=== PATIENT | female | born 1950 | race Caucasian/White ===

== ENCOUNTER 2018-05-04 17:18 | Observation (INO) ==
--- NOTE | 2018-05-04 17:37 | Emergency Department Note ---
Disposition Clinical Impression: Acute kidney insufficiency, Orthostatic hypotension dysautonomic syndrome Disposition: Admitted As Inpatient Time of Disposition: 18:30 (DR Pulido) Dizziness HPI - General Chief Complaint: ED General Medical Stated Complaint: low BP Time Seen by Provider: 05/04/18 17:23 Source: patient, EMS Mode of arrival: ambulatory Limitations: no limitations Nursing Notes Reviewed: Yes Vital Signs Reviewed: Yes - History of Present Illness Pt Subjective Complaint: dizziness Onset (ago): week(s) (4.5) Timing: gradual onset Description: other (Dizziness with postural changes) History of similar episodes: No History of trauma: No Severity: moderate Improves with: rest Worsens with: position Associated symptoms: Denies: ataxia, chest pain, confusion, diaphoresis, fever, chills, malaise, rash, shortness of breath, syncope, weakness, vision changes, nausea, vomiting, palpitations - Related Data Home Medications Medication Instructions Recorded Confirmed Aspirin 81 mg PO DAILY 10/06/17 05/04/18 BuPROPion XL (24 HR) [Wellbutrin 300 mg PO DAILY 10/06/17 05/04/18 XL] Calcium Carbonate/Vitamin D3 1 tab PO DAILY 10/06/17 05/04/18 [Calcium 500-Vit D3 200 Tablet] Donepezil [Aricept] 5 mg PO HS 10/06/17 05/04/18 Furosemide [Lasix] 40 mg PO DAILY 10/06/17 05/04/18 Levothyroxine [Synthroid] 175 mcg PO 0630 10/06/17 05/04/18 Lisinopril [Zestril] 40 mg PO DAILY 10/06/17 05/04/18 Metoprolol [Lopressor] 25 mg PO BID 10/06/17 05/04/18 Atorvastatin [Lipitor] 20 mg PO HS 03/05/18 05/04/18 Allergies Allergy/AdvReac Type Severity Reaction Status Date / Time No Known Allergies Allergy Verified 05/04/18 17:21 All systems ED: reviewed and negative except as stated. Review of Systems: As Per HPI Past Medical History - Past Medical History Medical history: Reports: CHF, dementia, hyperlipidemia, hypertension, thyroid disease, other Surgical history: Reports: cholecystectomy, knee replacement (Left), other ( Bladder suspension, hemorrhoidectomy) Psychiatric history: Reports: anxiety, depression ALTERNATIVE MEDICINE PRACTITIONER history: Reports: bilateral tubal ligation - Social History Smoking Status: Never smoker Smokeless Tobacco Status: No Alcohol use: Reports: none Drug use: Reports: none Physical Exam - General Limitations: no limitations General appearance: alert - Head Head exam: atraumatic, normocephalic - Expanded Head Exam Head exam physicial: Absent: tenderness of temporal artery - Eye Eye exam: Present: normal appearance, PERRL, EOMI. Absent: scleral icterus, conjunctival injection, nystagmus - ENT ENT exam: normal exam, normal oropharynx, mucous membranes moist - Neck Neck exam: Present: normal inspection, full ROM, trachea midline. Absent: tenderness, thyromegaly - Expanded Neck Exam Neck exam focused ED: Absent: JVD, carotid bruit - Chest Chest inspection: Present: normal inspection, symmetric chest wall rise - Respiratory Respiratory exam: Present: normal lung sounds bilaterally - Cardiovascular Cardiovascular exam: Present: regular rate, normal rhythm, normal heart sounds - Extremities Exam Extremities exam: Present: normal inspection, full ROM, normal capillary refill. Absent: tenderness, pedal edema - Back Exam Back exam: Present: normal inspection, full ROM. Absent: tenderness - Neurological Exam Neurological exam: Present: alert, oriented X3, CN II-XII intact, reflexes normal. Absent: motor sensory deficit - Psychiatric Psychiatric exam: Present: normal affect, normal mood - Skin Skin exam: Present: warm, dry, intact, normal color Course Vital Signs Temperature 98.8 F 05/04/18 17:22 Pulse Rate 67 05/04/18 17:22 Respiratory Rate 14 05/04/18 17:22 Blood Pressure 133/54 05/04/18 17:22 O2 Sat by Pulse Oximetry 97 05/04/18 17:22 Temperature 97.8 F 05/04/18 19:44 Pulse Rate 65 05/04/18 21:01 Respiratory Rate 17 05/04/18 19:44 Blood Pressure 117/71 05/04/18 21:01 O2 Sat by Pulse Oximetry 95 05/04/18 19:44 Oxygen Delivery Oxygen Delivery Room Air Dizziness - Lab Data Result diagrams: 05/04/18 18:00 05/04/18 18:00 Lab Results 05/04/18 05/04/18 Range/Units 18:00 18:00 WBC 8.1 (4.3-11.1) K/mcL RBC 3.53 L (3.82-4.97) M/mcL Hgb 12.1 (11.5-15.4) g/dL Hct 33.8 L (35.3-44.9) % MCV 95.8 (83.0-100.0) fL MCH 34.3 H (28.0-33.3) pg MCHC 35.8 H (31.6-35.5) g/dL RDW 13.0 (11.5-14.5) % Plt Count 203 (140-400) K/mcL MPV 9.8 (9.4-12.4) fL Immature Gran % 0.6 (0-4) % Seg Neutrophils % 75.4 % Lymphocytes % 13.6 % Monocytes % 7.3 % Eosinophils % 2.6 % Basophils % 0.5 % Neutrophils # 6.1 (1.6-8.9) K/mcL Lymphocytes # 1.1 (0.6-4.6) K/mcL Monocytes # 0.6 (0.0-1.3) K/mcL Eosinophils # 0.2 (0.0-0.6) K/mcL Basophils # 0.0 (0.0-0.2) K/mcL Sodium 133 L (136-145) mEq/L Potassium 3.6 (3.5-5.1) mEq/L Chloride 96 L (98-107) mEq/L Carbon Dioxide 25 (23-29) mEq/L BUN 24 H (8-23) mg/dL Creatinine 1.62 H (0.60-1.20) mg/dL Est GFR ( Amer) 38 L (> 60) Est GFR (Non-Af Amer) 32 L (> 60) BUN/Creatinine Ratio 15 (6-26) Glucose 100 (70-105) mg/dL Calculated Osmolality 280 (280-300) Calcium 9.9 (8.6-10.3) mg/dL
[2018-05-04 18:12] LABS: Basophils % 0.5 %; Eosinophils # 0.2 K/mcL (0.0-0.6); Eosinophils % 2.6 %; Hematocrit 33.8 % (35.3-44.9); Hemoglobin 12.1 g/dL (11.5-15.4); Immature Granulocytes % 0.6 % (0-4); Lymphocytes # 1.1 K/mcL (0.6-4.6); Lymphocytes % 13.6 %; Mean Corpuscular HGB Conc 35.8 g/dL (31.6-35.5); Mean Corpuscular Hemoglobin 34.3 pg (28.0-33.3); Mean Corpuscular Volume 95.8 fL (83.0-100.0); Mean Platelet Volume 9.8 fL (9.4-12.4); Monocytes # 0.6 K/mcL (0.0-1.3); Monocytes % 7.3 %; Neutrophils # 6.1 K/mcL (1.6-8.9); Platelet Count 203 K/mcL (140-400); Red Blood Count 3.53 M/mcL (3.82-4.97); Segmented Neutrophils % 75.4 %
[2018-05-04] MEDS ORDERED: 0.9 % Sodium Chloride 1,000 ML IVC ONE (18:24)
[2018-05-04 18:25] LABS: Calcium 9.9 mg/dL (8.6-10.3); Potassium 3.6 mEq/L (3.5-5.1)
[2018-05-04] MEDS ORDERED: Ondansetron 4 MG/2 ML VIAL IVP PRN (19:36)
[2018-05-04] MEDS ORDERED: Acetaminophen 325 MG TABLET PO PRN (19:36)
[2018-05-04] MEDS ORDERED: Naloxone 0.4 MG/ML INJ IVP PRN (19:36)
[2018-05-04] MEDS ORDERED: OXYCODONE Oral CONC 10 MG/0.5 ML ORAL.SYG SL PRN (19:36)
[2018-05-04] MEDS ORDERED: *HR* HYDROcodone/Acet 5/325 mg TABLET PO PRN (19:36)
[2018-05-05] MEDS ORDERED: *HR* OxyCODONE Oral Soln 5 MG/5 ML UD.LIQ PO PRN (08:00)
[2018-05-05] MEDS: Aspirin 81 MG TAB.CHEW PO SCH (08:48)
[2018-05-05] MEDS: BuPROPion XL (24 HR) 150 MG TABLET PO SCH (08:48)
[2018-05-05] MEDS ORDERED: Lisinopril 20 MG TABLET PO SCH (09:00)
--- NOTE | 2018-05-05 11:15 | Internal Med History&Physical ---
Date of Encounter: 05/05/18 Time of Encounter: 10:45 Assessment and Plan (1) Acute on chronic renal failure Current visit: Yes Status: Acute Will hold ACEI and Lasix and give IV fluids. Monitor labs Qualifiers: Acute renal failure type: unspecified Chronic kidney disease stage: stage 3 (moderate) Qualified Code(s): N17.9 - Acute kidney failure, unspecified; N18.3 - Chronic kidney disease, stage 3 (moderate) (2) CKD (chronic kidney disease) stage 3, GFR 30-59 ml/min Current visit: Yes Status: Chronic As above (3) Hyperuricemia Current visit: Yes Status: Acute Uric acid level was 10.5 on 04/19/2018. Will give low-dose allopurinol. (4) Low vitamin D level Current visit: Yes Status: Acute Vitamin D level was 10 on 04/19/2018. Home med list includes calcium and vitamin D supplement. Recheck in a.m. (5) Hypertension Current visit: Yes Status: Chronic Hold lisinopril, metoprolol, and Lasix because of borderline hypotension. Qualifiers: Hypertension type: essential hypertension Qualified Code(s): I10 - Essential (primary) hypertension (6) Hypothyroidism Current visit: Yes Status: Chronic TSH has not been checked since 2013. Check in a.m. Continue present dose Synthroid for now. Qualifiers: Hypothyroidism type: unspecified Qualified Code(s): E03.9 - Hypothyroidism , unspecified (7) Dyspnea on exertion Current visit: Yes Status: Acute Check Bn peptide and room air oximetry on ambulation. Internal Medicine - H&P: HPI Chief complaint: Lightheaded and weakness Admitted From: Emergency Dept Plans for Post Hospital Care: Home History of present illness: Ms. Mejia is a 67 year old female who came to emergency room complaining of sensation of lightheadedness with weakness onset approximately 4 weeks earlier. She reports instability without fall while ambulating with her walker. She reports slight increased dyspnea on exertion. She was evaluated in emergency room and found to have acute on chronic renal insufficiency. She was admitted to [facility] floor for ongoing care needs. She states she feels improved at the present time. Cardiovascular history is significant for hypertension. She claims a diagnosis of heart failure although BN peptide was 18 on 03/05/2018. She had a Regadenoson stress test 01/16/2016 which showed no perfusion or EKG changes of ischemia. LVEF was 73%. She denies chest pain on exertion. She denies past [place] DVT or pulmonary embolus. Past Med Surg Social Fam HX - Past Medical History Medical history: CHF, dementia, hyperlipidemia, hypertension, thyroid disease, other Additional medical history: hemorrhoids. early dementia vs alzheimers Psychiatric history: anxiety, depression - Past Surgical History Surgical History: cholecystectomy, knee replacement (Left), other (Bladder suspension, hemorrhoidectomy) Additional surgical history: left knee replacement, bladder tuck, tubal ligation , colonoscopy, hemorrhoidectomy - Social History Smoking Status: Never smoker Smokeless Tobacco Status: No Alcohol use: none Drug use: none - Family History Mother Living Status: Hx Family Cardiac Disorders: Yes Hx Family Cancer: Yes (Cervical) Father Living Status: Hx Family Cardiac Disorders: Yes Internal Medicine - H&P: Meds Aspirin 81 mg PO DAILY 10/06/17 [History] BuPROPion XL (24 HR) [Wellbutrin XL] 300 mg PO DAILY 10/06/17 [History] Calcium Carbonate/Vitamin D3 [Calcium 500-Vit D3 200 Tablet] 1 tab PO DAILY [History] Donepezil [Aricept] 5 mg PO HS 10/06/17 [History] Furosemide [Lasix] 40 mg PO DAILY 10/06/17 [History] Levothyroxine [Synthroid] 175 mcg PO 0630 10/06/17 [History] Lisinopril [Zestril] 40 mg PO DAILY 10/06/17 [History] Metoprolol [Lopressor] 25 mg PO BID 10/06/17 [History] Atorvastatin [Lipitor] 20 mg PO HS 03/05/18 [History] 3 Allergy/AdvReac Type Severity Reaction Status Date / Time No Known Allergies Allergy Verified 05/04/18 17:21 All Systems PM: A 10-system review of systems was performed and is negative for pertinent findings except as documented above in the HPI. Review of systems: Gen.: Her weight has increased from 100.244 kg 07/18/2014 to 103.221 kg at present Cardiovascular: As per history of present illness Respiratory: She is a lifelong nonsmoker and has no known chronic lung disease. She reports negative workup for EDWARDO in the past. GI: She denies disorders of her liver gallbladder or exocrine pancreas : She was hospitalized for UTI with possible pyelonephritis 2013. She denies frequent urinary infections or other disorders of her kidney or bladder. She has chronic kidney disease stage III and follows with a blasting contract man. Neurologic: She denies large distribution strokes or seizures. Endocrine: She has hypothyroidism and hyperlipidemia but denies diabetes Hematology/oncology: She denies blood disorders cancers or anemia Psychiatric: She has depression but denies anxiety or other mental health issues [place] skeletal: She has rheumatoid arthritis and had left total knee replacement but denies gout osteoporosis or other bone joint or muscle disorders. - Constitutional Vitals: Temp Pulse Resp BP Pulse Ox 98.1 F 50 14 113/64 97 05/05/18 07:02 05/05/18 07:02 05/05/18 07:02 05/05/18 07:02 05/05/18 10:14 Exam: Gen.: She is a well-developed overweight female resting comfortably in bed who appears in no acute distress at present time HEENT: Head is atraumatic and normocephalic. Eyes: EOMI. There is no scleral icterus. Mouth: Mucosa is moist. Neck: Supple and nontender. There is no thyromegaly or adenopathy noted. Heart: Regular with occasional ectopics. No murmurs or gallops are heard. Lungs: No wheezes or crackles are heard. Abdomen: Soft and nontender. No masses or guarding are noted. Extremities: She has trace edema in the dorsum of the feet bilaterally. Dorsalis pedis and posttibial pulses are trace palpable bilaterally. Neurologic: Mental status: She is talkative and a good historian. Cranial nerves: Smile is symmetric. Forehead wrinkles bilaterally. Tongue protrudes midline. EOMI. Motor: There is no pronator drift. Cerebellar: Finger to nose is intact bilaterally. Skin: Warm and dry Internal Med - H&P Results - Labs CBC & Chem 7: 05/04/18 18:00 05/04/18 18:00
[2018-05-05] MEDS: Patient Taking Own Medication 1 EACH PO SCH (11:23)
[2018-05-05 13:23] LABS: Magnesium 2.1 mg/dL (1.6-2.6); Potassium 3.3 mEq/L (3.5-5.1)
[2018-05-05] MEDS ORDERED: MOM Conc 10 ML UD.LIQ PO ONE (18:22)
[2018-05-06 06:41] LABS: Basophils % 0.3 %; Eosinophils # 0.2 K/mcL (0.0-0.6); Eosinophils % 3.1 %; Hematocrit 30.6 % (35.3-44.9); Hemoglobin 10.8 g/dL (11.5-15.4); Immature Granulocytes % 0.4 % (0-4); Lymphocytes # 0.9 K/mcL (0.6-4.6); Lymphocytes % 13.2 %; Mean Corpuscular HGB Conc 35.3 g/dL (31.6-35.5); Mean Corpuscular Hemoglobin 34.3 pg (28.0-33.3); Mean Corpuscular Volume 97.1 fL (83.0-100.0); Mean Platelet Volume 9.6 fL (9.4-12.4); Monocytes # 0.4 K/mcL (0.0-1.3); Monocytes % 5.9 %; Neutrophils # 5.2 K/mcL (1.6-8.9); Platelet Count 160 K/mcL (140-400); Red Blood Count 3.15 M/mcL (3.82-4.97); Red Cell Distribution Width 13.1 % (11.5-14.5); Segmented Neutrophils % 77.1 %
[2018-05-06 07:11] LABS: Calcium 8.8 mg/dL (8.6-10.3); Potassium 3.4 mEq/L (3.5-5.1)
[2018-05-06] MEDS: BuPROPion XL (24 HR) 150 MG TABLET PO SCH (08:33)
[2018-05-06] MEDS: Aspirin 81 MG TAB.CHEW PO SCH (08:33)
[2018-05-06] MEDS: Patient Taking Own Medication 1 EACH PO SCH (09:23)
--- NOTE | 2018-05-06 09:53 | Internal Med Progress Note ---
Date of Encounter: 05/06/18 Time of Encounter: 09:45 - Assessment and plan (1) Acute on chronic renal failure Current Visit: Yes Status: Acute Assessment and plan: May 06. BUN and creatinine improved to 18 and 1.30 respectively. Continue IV fluids and withholding Lasix and lisinopril. Recheck labs in a.m. Qualifiers: Acute renal failure type: unspecified Chronic kidney disease stage: stage 3 (moderate) Qualified Code(s): N17.9 - Acute kidney failure, unspecified; N18.3 - Chronic kidney disease, stage 3 (moderate) (2) CKD (chronic kidney disease) stage 3, GFR 30-59 ml/min Current Visit: Yes Status: Chronic Assessment and plan: May 06. As above (3) Hyperuricemia Current Visit: Yes Status: Acute Assessment and plan: May 06. Continue allopurinol (4) Low vitamin D level Current Visit: Yes Status: Acute Assessment and plan: May 06. Vitamin D level pending (5) Hypertension Current Visit: Yes Status: Chronic Assessment and plan: May 06. Hold lisinopril and Lasix. Restart metoprolol Qualifiers: Hypertension type: essential hypertension Qualified Code(s): I10 - Essential (primary) hypertension (6) Hypothyroidism Current Visit: Yes Status: Chronic Assessment and plan: May 06. TSH > 46. Increase Synthroid. Qualifiers: Hypothyroidism type: unspecified Qualified Code(s): E03.9 - Hypothyroidism , unspecified (7) Dyspnea on exertion Current Visit: Yes Status: Acute Assessment and plan: May 06. BN peptide normal at 39. Room air oximetry stable on 6 minute walk. Suspect deconditioning. (8) Anemia Current Visit: Yes Status: Acute Assessment and plan: May 06. Hemoglobin decreased to 10.8. Order anemia testing in a.m. Qualifiers: Anemia type: unspecified type Qualified Code(s): D64.9 - Anemia, unspecified - Subjective Interval history: May 06. She has no new complaints and feels better - Constitutional Vitals: Temp Pulse Resp BP Pulse Ox 98.1 F 66 16 146/74 97 05/06/18 06:57 05/06/18 06:57 05/06/18 06:57 05/06/18 06:57 05/06/18 08:10 Exam: She is resting comfortably on the side of bed. Her affect is bright and cheerful. I reviewed her medications. I discussed pertinent lab results with patient and family. Internal Medicine: Result - Labs CBC & Chem 7: 05/06/18 06:26 05/06/18 06:26 Labs: Short CBC 05/06/18 Range/Units 06:26 WBC 6.7 (4.3-11.1) K/mcL Hgb 10.8 L (11.5-15.4) g/dL Hct 30.6 L (35.3-44.9) % Plt Count 160 (140-400) K/mcL Neutrophils # 5.2 (1.6-8.9) K/mcL BMP 05/05/18 05/06/18 12:54 06:26 Sodium 134 L 134 L Potassium 3.3 L 3.4 L Chloride 97 L 101 Carbon Dioxide 26 25 BUN 22 18 Creatinine 1.57 H 1.30 H Glucose 112 H 104 Calcium 9.0 8.8 Consult Discharge Plan - Plan Referrals: Morgan Suarez, [employer] [Primary Care Provider] - 1 week
[2018-05-06] MEDS: 0.45 % Sodium Chloride w/KCl 20 MEQ/1,000 ML MLS IVC SCH (13:16)
[2018-05-06] MEDS: Metoprolol XL (24 HR) Succ 25 MG TAB.ER.24H PO SCH (13:16)
--- NOTE | 2018-05-06 18:45 | Electrocardiograph Report ---
[address] [id number] Test Date: 2018-05-04 Pat Name: Micki Mejia Department: [id number] Room: [facility] Gender: F [employer] Systems [employer]: [id number] 1950 Requested By: Romeo Randolph Order Number: [id number] Reading MD: El Tavares Measurements Intervals [place] Rate: 63 P: 57 NM: 170 QRS: 5 QRSD: 99 T: 94 QT: 344 QTc: 352 Interpretive Statements SINUS RHYTHM POSSIBLE INFERIOR MYOCARDIAL INFARCTION, PROBABLY OLD Electronically Signed On 05-06-2018 18:44:03 EDT by El Tavares
[2018-05-07 05:13] LABS: Basophils % 0.5 %; Eosinophils # 0.2 K/mcL (0.0-0.6); Eosinophils % 3.9 %; Hematocrit 30.5 % (35.3-44.9); Hemoglobin 10.6 g/dL (11.5-15.4); Immature Granulocytes % 0.7 % (0-4); Lymphocytes # 0.9 K/mcL (0.6-4.6); Lymphocytes % 15.7 %; Mean Corpuscular HGB Conc 34.8 g/dL (31.6-35.5); Mean Corpuscular Volume 97.8 fL (83.0-100.0); Mean Platelet Volume 9.7 fL (9.4-12.4); Monocytes # 0.3 K/mcL (0.0-1.3); Monocytes % 5.6 %; Neutrophils # 4.3 K/mcL (1.6-8.9); Platelet Count 160 K/mcL (140-400); Red Blood Count 3.12 M/mcL (3.82-4.97); Red Cell Distribution Width 13.2 % (11.5-14.5); Segmented Neutrophils % 73.6 %
[2018-05-07] MEDS: 0.45 % Sodium Chloride w/KCl 20 MEQ/1,000 ML MLS IVC SCH (05:25)
[2018-05-07 05:47] LABS: Calcium 8.6 mg/dL (8.6-10.3); Potassium 3.9 mEq/L (3.5-5.1)
[2018-05-07] MEDS: BuPROPion XL (24 HR) 150 MG TABLET PO SCH (08:15)
[2018-05-07] MEDS: Metoprolol XL (24 HR) Succ 25 MG TAB.ER.24H PO SCH (08:15)
[2018-05-07] MEDS: Aspirin 81 MG TAB.CHEW PO SCH (08:15)
[2018-05-07] MEDS: Patient Taking Own Medication 1 EACH PO SCH (08:15)
[2018-05-07 10:45] LABS: Folate 3.4 ng/mL (3.0-16.0)
[2018-05-07 15:07] VITALS: BP 131/64
--- NOTE | 2018-05-07 16:12 | Discharge Summary ---
Date of Encounter: 05/07/18 Time of Encounter: 15:55 - Discharge Diagnosis (1) Acute on chronic renal failure Priority: Primary Status: Acute Qualifiers: Acute renal failure type: unspecified Chronic kidney disease stage: stage 3 (moderate) Qualified Code(s): N17.9 - Acute kidney failure, unspecified; N18.3 - Chronic kidney disease, stage 3 (moderate) (2) CKD (chronic kidney disease) stage 3, GFR 30-59 ml/min Priority: Secondary Status: Chronic (3) Hyperuricemia Priority: Secondary Status: Chronic (4) Low vitamin D level Priority: Secondary Status: Chronic (5) Hypertension Priority: Secondary Status: Chronic Qualifiers: Hypertension type: essential hypertension Qualified Code(s): I10 - Essential (primary) hypertension (6) Hypothyroidism Priority: Secondary Status: Chronic Qualifiers: Hypothyroidism type: unspecified Qualified Code(s): E03.9 - Hypothyroidism , unspecified (7) Dyspnea on exertion Priority: Secondary Status: Acute (8) Anemia Priority: Secondary Status: Acute Qualifiers: Anemia type: unspecified type Qualified Code(s): D64.9 - Anemia, unspecified Hospital course: Ms. Mejia is a 67 year old female who came to emergency room complaining of sensation of lightheadedness with weakness onset approximately 4 weeks earlier. She reports instability without fall while ambulating with her walker. She reports slight increased dyspnea on exertion. She was evaluated in emergency room and found to have acute on chronic renal insufficiency. She was admitted to [facility] for ongoing care needs. Initial orders were written by the emergency room physician. I saw her on May 05 and performed a history and physical. Lasix and lisinopril were discontinued. IV fluids were administered and azotemia improved with BUN and creatinine decreasing to 11 and 1.17 by day of discharge with estimated GFR 46. Her blood pressure remained satisfactory. She will remain off Lasix and lisinopril at discharge. She will continue metoprolol. Vitamin D level returned low at 12. She will be given vitamin D 1000 IU daily. TSH returned significantly elevated at > 46.00. Synthroid dose was increased to 250 g daily. She will achieve this by adding a 75 g dose to her existing 175 g dose daily. Anemia testing showed iron 75, transferrin saturation 21%, transferrin 253, ferritin 103, B12 302, and folate 3.4. Hemoglobin was stable at 10.6 on day of discharge. On May 07 she felt significantly improved and stable for discharge home. She will follow with her PCP Morgan Suarez CNP within 1 week. - Time Spent with Patient Total time spent providing and/or coordinating discharge services: - Discharge Medications Prescriptions: Allopurinol [Zyloprim 100 MG] 100 mg PO DAILY #30 tablet Cholecalciferol (D-3) [Vitamin D] 1,000 unit PO DAILY #30 tablet Levothyroxine [Synthroid] 75 mcg PO 0630 #30 tablet Home Medications: Aspirin 81 mg PO DAILY 10/06/17 [History] BuPROPion XL (24 HR) [Wellbutrin Xl] 300 mg PO DAILY 10/06/17 [History] Calcium Carbonate/Vitamin D3 [Calcium 500-Vit D3 200 Tablet] 1 tab PO DAILY [History] Donepezil [Aricept] 5 mg PO HS 10/06/17 [History] Metoprolol [Lopressor] 25 mg PO BID 10/06/17 [History] Atorvastatin [Lipitor] 20 mg PO HS 03/05/18 [History] Allopurinol [Zyloprim 100 MG] 100 mg PO DAILY #30 tablet 05/07/18 [Rx] Cholecalciferol (D-3) [Vitamin D] 1,000 unit PO DAILY #30 tablet 05/07/18 [Rx] Levothyroxine [Synthroid] 75 mcg PO 0630 #30 tablet 05/07/18 [Rx] Levothyroxine [Synthroid] 175 mcg PO 0630 #0 05/07/18 [Rx] Allergies/Adverse Reactions: 3 Allergy/AdvReac Type Severity Reaction Status Date / Time No Known Allergies Allergy Verified 05/04/18 17:21 Date of admission: 05/04/18 18:54 Primary care physician: Morgan Suarez CNP - Constitutional Vitals: Temp Pulse Resp BP Pulse Ox 98.4 F 66 17 131/64 96 05/07/18 15:00 05/07/18 15:00 05/07/18 15:00 05/07/18 15:07 05/07/18 15:00 - Patient Status Disposition: Home, Self-Care Overall status at discharge: patient is progressing back to baseline - Discharge Instructions Follow Up With: Morgan Suarez CNP [Primary Care Provider] - 1 week - Diet and Activity Activity: resume usual activities as tolerated Diet: advance to your usual diet
[2018-05-07] MEDS ORDERED: MOM Conc 10 ML UD.LIQ PO SCH (18:30)
[2018-05-17 11:54] LABS: Thyroid Stimulating Hormone 112.717 mcIU/mL (0.340-5.600)
== END 2018-05-07 16:50 | disposition home or self-care (01) ==
LOC: EMEROOPIK 17:18 → INPPIK 17:18
PROVIDERS: ADMIT Internal Medicine; ATTEND Internal Medicine

== ENCOUNTER 2018-05-16 10:42 | Observation (INO) ==
--- NOTE | 2018-05-16 11:06 | Emergency Department Note ---
Disposition Clinical Impression: Orthostatic hypotension dysautonomic syndrome, Myalgia Disposition: Admitted As Inpatient Condition: Fair Referrals: Morgan Suarez, MORTGAGE ACCOUNTING CLERK [Primary Care Provider] - Forms: ED Satisfaction Letter, Work/School Release Time of Disposition: 13:15 ([facility]) Dizziness HPI - General Chief Complaint: ED General Medical Stated Complaint: Left leg & right arm pain, dizzy. Time Seen by Provider: 05/16/18 10:44 Source: patient Mode of arrival: ambulatory Limitations: age Nursing Notes Reviewed: Yes Vital Signs Reviewed: Yes - History of Present Illness HPI Narrative: 67-year-old female who presents emergency room his having left leg weakness and pain on and is also having right arm simply patient states that she is globally weak patient states that when she changes position she is lightheaded and dizzy feels that out she denies a chest pain just prescribed outpatient proptosis or sputum production she denies any associated trauma she's been hospitalized for this in the past Pt Subjective Complaint: dizziness, lightheadedness Onset (ago): hour(s) Timing: sudden onset Description: sense of movement, "room spinning" History of similar episodes: Yes History of trauma: No Severity: moderate Improves with: remaining still Worsens with: movement Associated symptoms: Reports: other (Patient having right arm weakness left leg weakness she states hospitalized for this previously). Denies: ataxia, chest pain, confusion, diaphoresis, fever, chills, malaise, rash, shortness of breath , syncope, weakness, vision changes, nausea, vomiting, palpitations - Related Data Home Medications Medication Instructions Recorded Confirmed Aspirin 81 mg PO DAILY 10/06/17 05/04/18 BuPROPion XL (24 HR) [Wellbutrin 300 mg PO DAILY 10/06/17 05/04/18 Xl] Calcium Carbonate/Vitamin D3 1 tab PO DAILY 10/06/17 05/04/18 [Calcium 500-Vit D3 200 Tablet] Donepezil [Aricept] 5 mg PO HS 10/06/17 05/04/18 Metoprolol [Lopressor] 25 mg PO BID 10/06/17 05/04/18 Atorvastatin [Lipitor] 20 mg PO HS 03/05/18 05/04/18 Previous Rx's Medication Instructions Recorded Allopurinol [Zyloprim 100 MG] 100 mg PO DAILY #30 tablet 05/07/18 Cholecalciferol (D-3) [Vitamin D] 1,000 unit PO DAILY #30 tablet 05/07/18 Levothyroxine [Synthroid] 75 mcg PO 0630 #30 tablet 05/07/18 Levothyroxine [Synthroid] 175 mcg PO 0630 #0 05/07/18 Allergies Allergy/AdvReac Type Severity Reaction Status Date / Time No Known Allergies Allergy Verified 05/04/18 17:21 All systems ED: reviewed and negative except as stated. Review of Systems: As Per HPI Constitutional: Reports: weakness. Denies: fever, chills Eyes: Denies: eye pain, eye discharge ENT ED: Denies: ear pain, throat pain, dental pain Cardiovascular: Denies: chest pain, palpitations, dyspnea on exertion Respiratory: Denies: cough, dyspnea, wheezes Gastrointestinal: Denies: abdominal pain, nausea, vomiting Genitourinary: Denies: urgency, dysuria, frequency Musculoskeletal: Denies: back pain, neck pain Integumentary: Denies: rash, abrasion, lesions, change in hair/nails Neurological: Reports: weakness, vertigo. Denies: headache Psychiatric: Denies: anxiety, depression Endocrine: Reports: fatigue. Denies: heat or cold intolerance Hematological/Lymphatic: Denies: easy bleeding, easy bruising Allergic/Immunologic: Denies: facial swelling, urticaria Past Medical History - Past Medical History Attestation: Yes The following information was validated with the patient. 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 - Social History Smoking Status: Never smoker Smokeless Tobacco Status: No Alcohol use: Reports: none Drug use: Reports: none Physical Exam - General Limitations: no limitations General appearance: alert, in no apparent distress, anxious, obese - Head Head exam: atraumatic, normocephalic, normal inspection - Eye Eye exam: Present: normal appearance, PERRL, EOMI - ENT ENT exam: normal exam, normal oropharynx, mucous membranes moist, TM's normal bilaterally, normal external ear exam - Neck Neck exam: Present: normal inspection, full ROM, trachea midline - Chest Chest inspection: Present: normal inspection, symmetric chest wall rise - Respiratory Respiratory exam: Present: normal lung sounds bilaterally - Cardiovascular Cardiovascular exam: Present: regular rate, normal rhythm, normal heart sounds - Abdominal Exam Abdominal exam: Present: soft, Non-Tender, normal bowel sounds. Absent: mass, pulsatile mass - Expanded Upper Extremity Exam Shoulder exam: Present: normal inspection, full ROM Arm exam: Present: normal inspection, full ROM Elbow exam: Present: normal inspection, full ROM Forearm/Wrist exam: Present: normal inspection, full ROM Hand exam: Present: normal inspection, full ROM Neurosensory exam: Normal: radial nerve, ulnar nerve Vascular exam: Normal: capillary refill, radial pulse - Expanded Lower Extremity Exam Hip/Pelvis exam: Present: normal inspection, full ROM Upper leg exam: Present: normal inspection, full ROM Knee exam: Present: normal inspection, full ROM Lower leg exam: Present: normal inspection, full ROM Ankle exam: Present: normal inspection, full ROM Foot/toe exam: Present: normal inspection, full ROM Neurovascular/Tendon exam: Present: normal capillary refill, normal fine/light touch. Absent: motor deficit, sensory deficit, tendon deficit Gait: observed and normal - Back Exam Back exam: Present: normal inspection, full ROM. Absent: muscle spasm - Neurological Exam Neurological exam: Present: alert, oriented X3, CN II-XII intact, normal gait - Psychiatric Psychiatric exam: Present: normal affect, normal mood - Skin Skin exam: Present: warm, dry, intact, normal color Course Course Narrative: She was seen and examined patient had orthostatics done which she dropped almost 50 points from systolic to diastolic when going from a seated to standing as result of hypertension she was given fluids is still had little improvement as result she'll be admitted for observation transfer services Dr. Pulido Vital Signs Temperature 98.4 F 05/16/18 10:44 Pulse Rate 98 05/16/18 10:44 Respiratory Rate 20 05/16/18 10:44 Blood Pressure 159/81 05/16/18 10:44 O2 Sat by Pulse Oximetry 95 05/16/18 10:44 Temperature 98.4 F 05/16/18 10:44 Pulse Rate 92 05/16/18 12:20 Respiratory Rate 15 05/16/18 12:20 Blood Pressure 145/78 05/16/18 12:20 O2 Sat by Pulse Oximetry 97 05/16/18 12:20 Oxygen Delivery Oxygen Delivery Room Air Dizziness - Differential Diagnosis Likely: benign paroxysmal positional vertigo, vertebral basilar insufficiency - Medical Records Medical records reviewed: Yes I reviewed the patient's medical records. - Lab Data Lab results reviewed: Yes I reviewed the patient's lab results. Result diagrams: 05/16/18 11:05 05/16/18 11:05 Lab Results 05/16/18 05/16/18 05/16/18 Range/Units 11:05 11:05 11:05 WBC 6.7 (4.3-11.1) K/mcL RBC 3.16 L (3.82-4.97) M/mcL Hgb 10.6 L (11.5-15.4) g/dL Hct 30.5 L (35.3-44.9) % MCV 96.5 (83.0-100.0) fL MCH 33.5 H (28.0-33.3) pg MCHC 34.8 (31.6-35.5) g/dL RDW 13.4 (11.5-14.5) % Plt Count 202 (140-400) K/mcL MPV 9.2 L (9.4-12.4) fL Immature Gran % 0.4 (0-4) % Seg Neutrophils % 80.2 % Lymphocytes % 7.7 % Monocytes % 9.2 % Eosinophils % 2.1 % Basophils % 0.4 % Neutrophils # 5.4 (1.6-8.9) K/mcL Lymphocytes # 0.5 L (0.6-4.6) K/mcL Monocytes # 0.6 (0.0-1.3) K/mcL Eosinophils # 0.1 (0.0-0.6) K/mcL Basophils # 0.0 (0.0-0.2) K/mcL ESR 94 H (0-30) mm/hr PT 12.8 H (9.4-12.1) Seconds INR 1.1 APTT 33.7 (26.0-36.0) Seconds Sodium (136-145) mEq/L Potassium (3.5-5.1) mEq/L Chloride (98-107) mEq/L Carbon Dioxide (23-29) mEq/L BUN (8-23) mg/dL Creatinine (0.60-1.20) mg/dL Est GFR ( Amer) (> 60) Est GFR (Non-Af Amer) (> 60) BUN/Creatinine Ratio (6-26) Glucose (70-105) mg/dL Calculated Osmolality (280-300) Calcium (8.6-10.3) mg/dL Magnesium (1.6-2.6) mg/dL Total Bilirubin (0.3-1.0) mg/dL AST (13-39) Units/L ALT (7-52) Units/L Alkaline Phosphatase (34-104) Units/L Troponin I (< 0.04) ng/mL Serum Total Protein (6.4-8.9) g/dL Albumin (3.5-5.7) g/dL Globulin (2.4-3.5) g/dL Albumin/Globulin Ratio (1.1-2.2) TSH (0.340-5.600) mcIU/mL 05/16/18 Range/Units 11:05 WBC (4.3-11.1) K/mcL RBC (3.82-4.97) M/mcL Hgb (11.5-15.4) g/dL Hct (35.3-44.9) % MCV (83.0-100.0) fL MCH (28.0-33.3) pg MCHC (31.6-35.5) g/dL RDW (11.5-14.5) % Plt Count (140-400) K/mcL MPV (9.4-12.4) fL Immature Gran % (0-4) % Seg Neutrophils % % Lymphocytes % % Monocytes % % Eosinophils % % Basophils % % Neutrophils # (1.6-8.9) K/mcL Lymphocytes # (0.6-4.6) K/mcL Monocytes # (0.0-1.3) K/mcL Eosinophils # (0.0-0.6) K/mcL Basophils # (0.0-0.2) K/mcL ESR (0-30) mm/hr PT (9.4-12.1) Seconds INR APTT (26.0-36.0) Seconds Sodium 133 L (136-145) mEq/L Potassium 3.8 (3.5-5.1) mEq/L Chloride 96 L (98-107) mEq/L Carbon Dioxide 23 (23-29) mEq/L BUN 14 (8-23) mg/dL Creatinine 1.25 H (0.60-1.20) mg/dL Est GFR ( Amer) 52 L (> 60) Est GFR (Non-Af Amer) 42 L (> 60) BUN/Creatinine Ratio 11 (6-26) Glucose 124 H (70-105) mg/dL Calculated Osmolality 278 L (280-300) Calcium 10.2 (8.6-10.3) mg/dL Magnesium 1.9 (1.6-2.6) mg/dL Total Bilirubin 0.9 (0.3-1.0) mg/dL AST 15 (13-39) Units/L ALT 13 (7-52) Units/L Alkaline Phosphatase 89 (34-104) Units/L Troponin I < 0.03 (< 0.04) ng/mL Serum Total Protein 8.0 (6.4-8.9) g/dL Albumin 4.6 (3.5-5.7) g/dL Globulin 3.4 (2.4-3.5) g/dL Albumin/Globulin Ratio 1.4 (1.1-2.2) TSH 55.240 H (0.340-5.600) mcIU/mL - Radiology Data Radiology results reviewed: Yes I reviewed the patient's radiology results. - EKG Data EKG attestation: Yes I reviewed and interpreted this EKG. EKG results narrative: Sinus tach rate 100 by mouth 162 QRS 98 QT 345 axis XLIV Critical Care Time Critical Care Time: No
[2018-05-16] MEDS ORDERED: 0.9 % Sodium Chloride 1,000 ML IVC SCH ×3 (11:15→14:07)
[2018-05-16 11:23] LABS: Basophils % 0.4 %; Eosinophils # 0.1 K/mcL (0.0-0.6); Eosinophils % 2.1 %; Hematocrit 30.5 % (35.3-44.9); Hemoglobin 10.6 g/dL (11.5-15.4); Immature Granulocytes % 0.4 % (0-4); Lymphocytes # 0.5 K/mcL (0.6-4.6); Lymphocytes % 7.7 %; Mean Corpuscular HGB Conc 34.8 g/dL (31.6-35.5); Mean Corpuscular Hemoglobin 33.5 pg (28.0-33.3); Mean Corpuscular Volume 96.5 fL (83.0-100.0); Mean Platelet Volume 9.2 fL (9.4-12.4); Monocytes # 0.6 K/mcL (0.0-1.3); Monocytes % 9.2 %; Neutrophils # 5.4 K/mcL (1.6-8.9); Platelet Count 202 K/mcL (140-400); Red Blood Count 3.16 M/mcL (3.82-4.97); Red Cell Distribution Width 13.4 % (11.5-14.5); Segmented Neutrophils % 80.2 %
[2018-05-16 11:24] LABS: INR 1.1; Prothrombin Time 12.8 Seconds (9.4-12.1)
[2018-05-16 11:27] LABS: Activated Partial Thrombo Time 33.7 Seconds (26.0-36.0)
[2018-05-16 11:36] LABS: Alanine Aminotransferase 13 Units/L (7-52); Albumin 4.6 g/dL (3.5-5.7); Albumin/Globulin Ratio 1.4 (1.1-2.2); Alkaline Phosphatase 89 Units/L (34-104); Aspartate Amino Transferase 15 Units/L (13-39); BUN/Creatinine Ratio 11 (6-26); Bilirubin,Total 0.9 mg/dL (0.3-1.0); Blood Urea Nitrogen 14 mg/dL (8-23); Calcium 10.2 mg/dL (8.6-10.3); Carbon Dioxide 23 mEq/L (23-29); Chloride 96 mEq/L (98-107); Globulin 3.4 g/dL (2.4-3.5); Glucose 124 mg/dL (70-105); Magnesium 1.9 mg/dL (1.6-2.6); Osmolality,Calculated 278 (280-300); Potassium 3.8 mEq/L (3.5-5.1); Sodium 133 mEq/L (136-145); eGFR For Non-African Americans 42 (> 60)
[2018-05-16 11:41] LABS: Troponin I < 0.03 ng/mL (< 0.04)
[2018-05-16] MEDS ORDERED: Naloxone 0.4 MG/ML INJ IVP PRN (14:07)
[2018-05-16] MEDS ORDERED: Mag Hydrox/Al Hydrox/Simeth 30 ML UDC PO PRN (16:03)
[2018-05-16] MEDS: methylPREDNISolone 125 MG/2 ML VIAL IVP SCH ×2 (16:53→23:33)
[2018-05-16] MEDS: 0.9 % Sodium Chloride 1,000 ML IVC SCH (21:22)
[2018-05-17 04:45] LABS: Bilirubin,Urine Negative (Negative); Blood,Urine Trace-intact (Negative); Clarity,Urine Slightly Cloudy (Clear); Color,Urine Light Yellow (Yellow); Glucose,Urine (UA) Normal (Normal); Ketones,Urine Negative (Negative); Leukocyte Esterase,Urine Negative (Negative); Nitrite,Urine Negative (Negative); Protein,Urine Negative (Neg-Trace); Specific Gravity,Urine 1.015 (1.010-1.025); Urobilinogen,Urine Normal (Normal)
[2018-05-17] MEDS: methylPREDNISolone 125 MG/2 ML VIAL IVP SCH ×3 (05:37→11:13)
[2018-05-17] MEDS: 0.9 % Sodium Chloride 1,000 ML IVC SCH ×2 (05:38→09:32)
[2018-05-17 06:17] LABS: Basophils % 0.1 %; Eosinophils % 0.1 %; Hematocrit 29.4 % (35.3-44.9); Hemoglobin 10.3 g/dL (11.5-15.4); Immature Granulocytes % 0.9 % (0-4); Lymphocytes # 0.3 K/mcL (0.6-4.6); Lymphocytes % 4.2 %; Mean Corpuscular Hemoglobin 33.8 pg (28.0-33.3); Mean Corpuscular Volume 96.4 fL (83.0-100.0); Mean Platelet Volume 9.5 fL (9.4-12.4); Monocytes # 0.2 K/mcL (0.0-1.3); Monocytes % 2.2 %; Neutrophils # 6.4 K/mcL (1.6-8.9); Platelet Count 236 K/mcL (140-400); Red Blood Count 3.05 M/mcL (3.82-4.97); Red Cell Distribution Width 13.3 % (11.5-14.5); Segmented Neutrophils % 92.5 %
[2018-05-17 06:19] LABS: Squamous Epithelial Cell,Urine Moderate per lpf (None-Few)
[2018-05-17 06:20] LABS: Renal Epithelial Cells,Urine Few per hpf (None-Few)
[2018-05-17 06:21] LABS: Bacteria,Urine Few per hpf (None-Few); RBC,Urine 0-3 per hpf (0-3); Transitional Epi Cells,Urine Few per hpf (None-Few); WBC,Urine 0-3 per hpf (0-3)
[2018-05-17 06:37] VITALS: BP 144/76
[2018-05-17 06:40] LABS: BUN/Creatinine Ratio 14 (6-26); Blood Urea Nitrogen 15 mg/dL (8-23); Calcium 9.3 mg/dL (8.6-10.3); Carbon Dioxide 21 mEq/L (23-29); Chloride 100 mEq/L (98-107); Glucose 164 mg/dL (70-105); Osmolality,Calculated 280 (280-300); Potassium 3.8 mEq/L (3.5-5.1); Sodium 133 mEq/L (136-145); eGFR For Non-African Americans 50 (> 60)
[2018-05-17] MEDS ORDERED: Aspirin 81 MG TAB.CHEW PO SCH (09:00)
[2018-05-17] MEDS ORDERED: BuPROPion XL (24 HR) 150 MG TABLET PO SCH (09:00)
[2018-05-17] MEDS ORDERED: Cholecalciferol (D-3) 1,000 UNIT TABLET PO SCH (09:00)
--- NOTE | 2018-05-17 10:51 | Internal Med History&Physical ---
Date of Encounter: 05/17/18 Time of Encounter: 10:15 Assessment and Plan (1) Orthostatic hypotension dysautonomic syndrome Current visit: Yes Status: Acute Improved. I explained to her she should arise slowly from a seated position each time she attempts to stand and allow equilibrium to occur. Her PCP can monitor this and adjust blood pressure medication as needed. (2) Hypothyroidism Current visit: No Status: Chronic Continue Synthroid Qualifiers: Hypothyroidism type: unspecified Qualified Code(s): E03.9 - Hypothyroidism , unspecified (3) Anemia Current visit: No Status: Acute Anemia testing done 05/07/2018 was reviewed. It showed no factor deficiency. Anemia likely due to chronic kidney disease. Qualifiers: Anemia type: unspecified type Qualified Code(s): D64.9 - Anemia, unspecified (4) Left foot pain Current visit: Yes Status: Acute Now resolved. Etiology not obvious. There is no discoloration history of trauma. (5) Hyperuricemia Current visit: No Status: Chronic Uric acid level was 10.5 on 04/19/2018. Her PCP can monitor and adjust dose as necessary. Internal Medicine - H&P: HPI Chief complaint: Lightheaded, left foot and right arm pain Admitted From: Emergency Dept Plans for Post Hospital Care: Home History of present illness: Ms. Mejia is a 67 year old female who came to emergency room stating she had awakened with discomfort in her left foot and right arm. She attempted to ambulate to the bathroom but was unable to walk well because of the pain. She also felt lightheaded and almost fell. Her caught her and she did not fall. When symptoms persisted she came to emergency room. She was evaluated and admitted to [facility] for ongoing care needs. She states she has similar sensation of lightheadedness upon arising from a chair at home. She checks her blood pressure several times per week and states it is "okay" but does not know specific values. She claims a diagnosis of heart failure although BN peptide was 39 on 05/05/2018. She had a Regadenoson stress test 01/16/2016 which showed no perfusion or EKG changes of ischemia. LVEF was 73%. She denies chest pain on exertion. She denies past MO DVT or pulmonary embolus. She states she feels improved now and back to her baseline and stable for discharge home. Past Med Surg Social Fam HX - Past Medical History Medical history: CHF, dementia, hyperlipidemia, hypertension, renal disease, thyroid disease, other Additional medical history: hemorrhoids. early dementia vs alzheimers Psychiatric history: anxiety, depression - Past Surgical History Surgical History: knee replacement, other Additional surgical history: Bladder tuck - Social History Smoking Status: Never smoker Smokeless Tobacco Status: No Alcohol use: none Drug use: none - Family History Mother Living Status: Hx Family Cardiac Disorders: Yes Hx Family Cancer: Yes (Cervical) Father Living Status: Hx Family Cardiac Disorders: Yes Internal Medicine - H&P: Meds Aspirin 81 mg PO DAILY 10/06/17 [History] BuPROPion XL (24 HR) [Wellbutrin Xl] 300 mg PO DAILY 10/06/17 [History] Calcium Carbonate/Vitamin D3 [Calcium 500-Vit D3 200 Tablet] 1 tab PO DAILY [History] Donepezil [Aricept] 5 mg PO HS 10/06/17 [History] Metoprolol [Lopressor] 25 mg PO BID 10/06/17 [History] Atorvastatin [Lipitor] 20 mg PO HS 03/05/18 [History] Allopurinol [Zyloprim 100 MG] 100 mg PO DAILY #30 tablet 05/07/18 [Rx] Cholecalciferol (D-3) [Vitamin D] 1,000 unit PO DAILY #30 tablet 05/07/18 [Rx] Levothyroxine [Synthroid] 75 mcg PO 0630 #30 tablet 05/07/18 [Rx] Levothyroxine [Synthroid] 175 mcg PO 0630 #0 05/07/18 [Rx] 3 Allergy/AdvReac Type Severity Reaction Status Date / Time No Known Allergies Allergy Verified 05/04/18 17:21 All Systems PM: A 10-system review of systems was performed and is negative for pertinent findings except as documented above in the HPI. Review of systems: Review of systems from her April 2018 [facility] hospitalization were reviewed and revised as below. Gen.: Her weight has increased from 100.244 kg 07/18/2014 to 105.3 kg at present Cardiovascular: As per history of present illness Respiratory: She is a lifelong nonsmoker and has no known chronic lung disease. She reports negative workup for EDWARDO in the past. GI: She denies disorders of her liver gallbladder or exocrine pancreas : She was hospitalized for UTI with possible pyelonephritis 2013. She denies frequent urinary infections or other disorders of her kidney or bladder. She has chronic kidney disease stage III and follows with a retail cosmetics sales beauty advisor. Neurologic: She denies large distribution strokes or seizures. Endocrine: She has hypothyroidism and hyperlipidemia but denies diabetes Hematology/oncology: She denies blood disorders cancers or anemia Psychiatric: She has depression but denies anxiety or other mental health issues [place] skeletal: She has rheumatoid arthritis and had left total knee replacement but denies gout osteoporosis or other bone joint or muscle disorders. - Constitutional Vitals: Temp Pulse Resp BP Pulse Ox 98.5 F 72 21 144/76 94 05/17/18 06:34 05/17/18 06:34 05/17/18 06:34 05/17/18 06:34 05/17/18 09:20 Exam: Neuro: She is a well-developed well-nourished female resting comfortably in bed who appears in no acute distress at present time. HEENT: Head is atraumatic and normal cephalic. Eyes: EOMI. There is no scleral icterus. Mouth: Mucosa is moist. Neck: Supple and nontender. There is no thyromegaly or adenopathy noted. Heart: Regular without murmurs gallops or ectopics. Lungs: No wheezes or crackles are heard. Back: She has dorsal kyphosis. There is no flank tenderness. Abdomen: Soft and nontender. No masses or guarding are noted. Extremities: There is no cyanosis edema or clubbing noted. Dorsalis pedis and posttibial pulses are trace palpable bilaterally. Neurologic: Mental status: She is talkative and a good historian. Cranial nerves: Smile is symmetric. Forehead wrinkles bilaterally. Tongue protrudes midline. EOMI. Motor: There is no pronator drift. Cerebellar: Finger to nose is intact bilaterally. Skin: Warm and dry Internal Med - H&P Results - Labs CBC & Chem 7: 05/17/18 04:50 05/17/18 04:50 Labs: Short CBC 05/17/18 Range/Units 04:50 WBC 6.9 (4.3-11.1) K/mcL Hgb 10.3 L (11.5-15.4) g/dL Hct 29.4 L (35.3-44.9) % Plt Count 236 (140-400) K/mcL Neutrophils # 6.4 (1.6-8.9) K/mcL BMP 05/17/18 04:50 Sodium 133 L Potassium 3.8 Chloride 100 Carbon Dioxide 21 L BUN 15 Creatinine 1.09 Glucose 164 H Calcium 9.3 Cardiac Enzymes 05/16/18 05/16/18 Range/Units 17:18 23:07 Troponin I < 0.03 < 0.03 (< 0.04) ng/mL Urine 05/17/18 Range/Units 04:44 Urine Color Light Yellow (Yellow) Urine Clarity Slightly Cloudy A (Clear) Urine pH 6.0 (5.0-8.0) pH Units Ur Specific [place] 1.015 (1.010-1.025) Urine Protein Negative (Neg-Trace) mg/dL Urine Glucose (UA) Normal (Normal) mg/dL
--- NOTE | 2018-05-17 11:10 | Discharge Summary ---
Date of Encounter: 05/17/18 Time of Encounter: 10:15 - Discharge Diagnosis (1) Orthostatic hypotension dysautonomic syndrome Priority: Primary Status: Acute (2) Hypothyroidism Priority: Secondary Status: Chronic Qualifiers: Hypothyroidism type: unspecified Qualified Code(s): E03.9 - Hypothyroidism , unspecified (3) Anemia Priority: Secondary Status: Chronic Qualifiers: Anemia type: unspecified type Qualified Code(s): D64.9 - Anemia, unspecified (4) Left foot pain Priority: Secondary Status: Resolved (5) Hyperuricemia Priority: Secondary Status: Chronic Hospital course: Ms. Mejia is a 67 year old female who came to emergency room stating she had awakened with discomfort in her left foot and right arm. She attempted to ambulate to the bathroom but was unable to walk well because of the pain. She also felt lightheaded and almost fell. Her caught her and she did not fall. When symptoms persisted she came to emergency room. She was evaluated and admitted to [facility] for ongoing care needs. Initial orders were written by the emergency room physician. I saw her on May 17 and performed a history physical and discharge. By the time I saw her the orthostatic lightheadedness had resolved. She had no pain in her right arm her left foot. She felt back to her baseline and stable for discharge home which I felt was reasonable. I encouraged her to rise slowly from a seated position at all times. Her PCP can monitor orthostatic vital signs and follow- up on elevated uric acid level. She will follow with her PCP within 1 week. - Time Spent with Patient Total time spent providing and/or coordinating discharge services: - Discharge Medications Home Medications: Aspirin 81 mg PO DAILY 10/06/17 [History] BuPROPion XL (24 HR) [Wellbutrin Xl] 300 mg PO DAILY 10/06/17 [History] Calcium Carbonate/Vitamin D3 [Calcium 500-Vit D3 200 Tablet] 1 tab PO DAILY [History] Donepezil [Aricept] 5 mg PO HS 10/06/17 [History] Metoprolol [Lopressor] 25 mg PO BID 10/06/17 [History] Atorvastatin [Lipitor] 20 mg PO HS 03/05/18 [History] Allopurinol [Zyloprim 100 MG] 100 mg PO DAILY #30 tablet 05/07/18 [Rx] Cholecalciferol (D-3) [Vitamin D] 1,000 unit PO DAILY #30 tablet 05/07/18 [Rx] Levothyroxine [Synthroid] 75 mcg PO 0630 #30 tablet 05/07/18 [Rx] Levothyroxine [Synthroid] 175 mcg PO 0630 #0 05/07/18 [Rx] Allergies/Adverse Reactions: 3 Allergy/AdvReac Type Severity Reaction Status Date / Time No Known Allergies Allergy Verified 05/04/18 17:21 Date of admission: 05/16/18 13:59 Primary care physician: Morgan Suarez CNP - Constitutional Vitals: Temp Pulse Resp BP Pulse Ox 98.5 F 72 21 144/76 94 05/17/18 06:34 05/17/18 06:34 05/17/18 06:34 05/17/18 06:34 05/17/18 09:20 - Patient Status Disposition: Home, Self-Care Condition: Fair - Discharge Instructions Follow Up With: Morgan Suarez CNP [Primary Care Provider] - 1 week - Diet and Activity Activity: resume usual activities as tolerated Diet: advance to your usual diet
--- NOTE | 2018-05-17 11:13 | Physician Discharge Referral ---
Home Health/Hosp Referral Info Transfer to: Home Health Attending Provider: Ashok Provider in Charge Post Discharge: PCP (Erick) - Diagnosis (1) Orthostatic hypotension dysautonomic syndrome Priority: Primary Status: Acute (2) Hypothyroidism Priority: Secondary Status: Chronic (3) Anemia Priority: Secondary Status: Chronic (4) Left foot pain Priority: Secondary Status: Resolved (5) Hyperuricemia Priority: Secondary Status: Chronic - Respiratory Orders Smoking Cessation: Smoking cessation has been advised. For more information, call the [place] Tobacco Quit Line at 1-091-VQVE-NOW. - Diet/Nutrition Diet/Nutrition Orders: Cardiac - Activity Activity Orders: Walker - Services Needed Following services are medically necessary services: Nursing, Home Health Aide, Physical Therapy, Occupational Therapy - Transfer Medications Home Medications: Aspirin 81 mg PO DAILY 10/06/17 [History] BuPROPion XL (24 HR) [Wellbutrin Xl] 300 mg PO DAILY 10/06/17 [History] Calcium Carbonate/Vitamin D3 [Calcium 500-Vit D3 200 Tablet] 1 tab PO DAILY [History] Donepezil [Aricept] 5 mg PO HS 10/06/17 [History] Metoprolol [Lopressor] 25 mg PO BID 10/06/17 [History] Atorvastatin [Lipitor] 20 mg PO HS 03/05/18 [History] Allopurinol [Zyloprim 100 MG] 100 mg PO DAILY #30 tablet 05/07/18 [Rx] Cholecalciferol (D-3) [Vitamin D] 1,000 unit PO DAILY #30 tablet 05/07/18 [Rx] Levothyroxine [Synthroid] 75 mcg PO 0630 #30 tablet 05/07/18 [Rx] Levothyroxine [Synthroid] 175 mcg PO 0630 #0 05/07/18 [Rx] Allergies/Adverse Reactions: 3 Allergy/AdvReac Type Severity Reaction Status Date / Time No Known Allergies Allergy Verified 05/04/18 17:21 Certification: Further, I certify that my clinical findings support that this patient is homebound (i.e. absences from home require considerable and taxing effort and are for medical reasons or confucianist services or infrequently or short duration when for other reasons) because: Homebound Reason: Leaving home requires considerable and taxing effort due to condition (Impaired ambulation secondary to DJD, anemia, hyperuricemia) Attestation: My signature below is to certify that this patient is under my care and that I, or nurse practitioner, or a physician's pediatric dental assistant working with me, has a face-to -face encounter with this patient.
--- NOTE | 2018-05-18 23:22 | Electrocardiograph Report ---
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
== END 2018-05-17 11:50 | disposition home or self-care (01) ==
LOC: EMEROOPIK 10:42 → INPPIK 10:42
PROVIDERS: ADMIT Internal Medicine; ATTEND Internal Medicine